=== PATIENT | male | born 1960 | race Caucasian/White ===

== ENCOUNTER 2020-11-28 19:49 | Emergency (ER) | payer BC ==
[~2020-11-28] VITALS: Ht 177.8 cm; Wt 81.7 kg
[2020-11-28] MEDS ORDERED: NOHOMEMEDICATIONS (20:08)
[2020-11-28 20:11] LABS: ABSOLUTE LYMPHOCYTES 1.6 thou/uL (0.8-5.3); ABSOLUTE MONOCYTES 0.7 thou/uL (0.0-1.2); ABSOLUTE NEUTROPHILS 2.6 thou/uL (1.6-8.1); EOSINOPHILS 0.4 %; HEMATOCRIT 44.7 % (42.0-52.0); HEMOGLOBIN 15.5 gm/dL (14.0-18.0); LYMPHOCYTES 31.5 %; MCH 30.7 pg (26.0-34.0); MCHC 34.6 g/dL (28.0-37.0); MCV 88.7 fL (80.0-100.0); MONOCYTES 14.7 %; MPV 6.9 fl. (7.2-11.1); NUCLEATED RBCS 0 /100WBC; PLATELET COUNT* 233 thou/uL (150-400); POLYS 52.4 %; RBC 5.05 mil/uL (4.50-6.00); RDW-CV 13.1 % (10.5-14.5)
[2020-11-28 20:21] LABS: CALCIUM 8.6 mg/dL (8.5-10.1); CREATININE 1.2 mg/dL (0.6-1.3); POTASSIUM 3.8 mmol/L (3.5-5.1)
[2020-11-28 20:25] LABS: ALBUMIN 3.3 g/dL (3.4-5.0); MAGNESIUM 2.1 mg/dL (1.8-2.4); TOTAL BILIRUBIN 0.4 mg/dL (<0.1-1.0); TOTAL PROTEIN 8.1 g/dL (6.4-8.2)
[2020-11-28 20:26] LABS: BE 1.7 mmol/L (-2 to +3); PO2 90.4 mmHg (75.0-100.0); pH 7.446 (7.340-7.450)
[2020-11-28 21:10] VITALS: BP 104/69
--- NOTE | 2020-11-29 11:11 | EKG ---
[place] [address] ELECTROCARDIOGRAM REPORT Name: JOCELYNMAKAYLA Ana Luisa Room: [facility]#: [id number] Admission: 11/28/20 Attend Phys: Discharge: 11/28/20 Date of : 64 Date of Service: 11/28/202028 Report #: [id number] THIS REPORT FOR: //name// [facility] ED Test Date: 2020-11-28 Test Time: 20:29:41 Pat Name: MAKAYLA BANKS Department: Room: Gender: Pricing Director: AKHIL CABRERA : 1960 Requested By: Suzi Milner Order Number: [id number] MD: Sae Veloz Measurements Intervals [place] Rate: 102 P: 60 SD: 154 QRS: 29 QRSD: 83 T: 51 QT: 331 QTc: 432 Interpretive Statements Sinus tachycardia Probable left atrial enlargement Baseline wander in lead(s) V2 No previous ECG available for comparison Electronically Signed On 11-29-2020 11:11:23 CDT by Sae Veloz [email or web address] <ELECTRONICALLY SIGNED> By: Sae Veloz MD, [facility] 11/29/20 1111 28 28 Sae Veloz MD, [facility] /EPI
== END 2020-11-28 21:10 | disposition home or self-care (01) ==
LOC: M.ERS 19:49
PROVIDERS: Personal Emergency Response Attendant
DX: U07.1 COVID-19 (principal)